=== PATIENT | male | born 1995 | race Asian ===

== ENCOUNTER 2018-10-08 22:41 | Emergency (ER) | payer SELFPAY ==
[~2018-10-08] VITALS: Ht 195.6 cm; Wt 88.5 kg
[2018-10-08 22:57] VITALS: BP_SYST 127
[2018-10-08] MEDS ORDERED: NACL 0.9% 1,000 ML IV ONE (23:00)
[2018-10-08] MEDS ORDERED: KETOROLAC TROMETHAMINE 30 MG VIAL IVP ONE (23:00)
[2018-10-08] MEDS ORDERED: MIDAZOLAM HCL 5 MG/5 ML VIAL IVP ONE (23:30)
[2018-10-08] MEDS ORDERED: KETAMINE 30 MG/3 ML SYRINGE IVP ONE (23:30)
[2018-10-09 00:35] VITALS: BP_SYST 131
== END 2018-10-09 00:35 | disposition home or self-care (01) ==
LOC: SED 22:41
DX: S43.005A Unspecified dislocation of left shoulder joint, initial encounter (principal); Z88.1 Allergy status to other antibiotic agents; Z90.89 Acquired absence of other organs; W01.198A Fall on same level from slipping, tripping and stumbling with subsequent striking against other object, initial encounter; Y93.89 Activity, other specified; Y92.89 Other specified places as the place of occurrence of the external cause; Y99.8 Other external cause status
CPT/HCPCS: 23650; 73020; 96374; 99152; 99285; J1885; J2250; J7030